=== PATIENT | female | born 1950 | race Caucasian/White ===

== ENCOUNTER → 2020-01-13 17:58 | Outpatient (CLI) | payer MEDICARE, SELFPAY ==
--- NOTE | ~2020-01-13 | MM_ITS ---
EXAMINATION: MM screening [facility] BI w prasad HISTORY: Screening mammogram TECHNIQUE: Craniocaudal and mediolateral oblique 3-D tomosynthesis images were obtained and synthetic 2-D images were generated. CAD analysis was submitted and interpreted. COMPARISON: 04/23/2017 BREAST PARENCHYMAL COMPOSITION: There are scattered areas of fibroglandular density. FINDINGS: Stable mild asymmetry. Minimal benign calcification. There is no evidence of suspicious mas s, calcification, or architectural distortion to suggest malignancy in either breast. There has been no suspicious interval change. IMPRESSION: 1. No mammographic evidence of malignancy. 2. Recommend routine screening mammography in one year. BI-RADS Category 2: Benign finding(s). Reviewed, dictated and finalized at location A. OR NEWS
== END ==
PROVIDERS: PCP Internal Medicine; Visit Provider Nurse Practitioner
DX: Z12.31 Encounter for screening mammogram for malignant neoplasm of breast (principal)
CPT/HCPCS: 77063; 77067

== ENCOUNTER → 2021-05-07 14:04 | Outpatient (CLI) | payer MEDICARE, SELFPAY ==
--- NOTE | ~2021-05-07 | MM_ITS ---
EXAMINATION: MM screening [facility] BI w prasad HISTORY: Screening mammogram TECHNIQUE: Craniocaudal and mediolateral oblique 3-D tomosynthesis images were obtained and synthetic 2-D images were generated. CAD analysis was submitted and interpreted. COMPARISON: 01/13/2020, 04/23/2017, 05/25/2013 BREAST PARENCHYMAL COMPOSITION: There are scattered areas of fibroglandular density. FINDINGS: There is no suspicious mass, calcification, or architectural distortion to suggest malignan cy in either breast. There has been no suspicious interval change. IMPRESSION: 1. No mammographic evidence of malignancy. 2. Recommend routine screening mammography in one year. BI-RADS Category 1: Negative Reviewed, dictated and finalized at location A.
== END ==
PROVIDERS: PCP Internal Medicine; Visit Provider Nurse Practitioner
DX: Z12.31 Encounter for screening mammogram for malignant neoplasm of breast (principal)
CPT/HCPCS: 77063; 77067

== ENCOUNTER 2022-04-02 11:56 | Outpatient (CLI) | payer MEDICARE, SELFPAY ==
[2022-04-02 20:20] LABS: Basophils Absolute Auto 0.1 K/mm3 (0.0-0.1); Basophils Percent Auto 0.7 % (0.2-1.2); Eosinophils Absolute Auto 0.2 K/mm3 (0-0.3); Eosinophils Percent Auto 1.9 % (0-4.4); Hematocrit 38.1 % (37.0-47.0); Hemoglobin 12.2 g/dL (12.0-15.0); Immature Granulocyte Absolute 0.02 K/mm3 (0.00-0.031); Immature Granulocyte Percent A 0.2 % (0-0.5); Lymphocytes Absolute Auto 2.18 K/mm3 (0.9-3.2); Lymphocytes Percent Auto 25.7 % (18.3-44.2); Mean Corpuscular Hemoglobin 28.5 pg (26-34); Mean Platelet Volume 9.6 fl (7.4-10.4); Monocytes Absolute Auto 0.9 K/mm3 (0.1-0.6); Monocytes Percent Auto 10.3 % (2.6-8.5); Neutrophils Absolute Auto 5.2 K/mm3 (1.3-6.7); Neutrophils Percent Auto 61.2 % (45.5-73.1); Platelet Count Result 278 k/mm3 (150-375); Red Blood Count 4.28 M/mm3 (4.2-5.4); Red Cell Distribution Width 12.4 % (11.5-14.5); White Blood Count 8.5 K/mm3 (4.5-10.0)
[2022-04-02 20:27] LABS: Alanine Aminotransferase 18 U/L (6-35); Albumin Level 3.8 g/dL (3.5-5.1); Alkaline Phosphatase 80 U/L (38-126); Anion Gap 5 mmol/L (8-16); Aspartate Amino Transferase 32 U/L (14-36); Bilirubin,Total 0.4 mg/dL (0.2-1.3); Blood Urea Nitrogen 21 mg/dL (7-17); Calcium 8.9 mg/dL (8.4-10.2); Carbon Dioxide 30 mmol/L (22-30); Chloride 104 mmol/L (98-107); Estimated Glomerular Filt Rate 54; Glucose 114 mg/dL (65-110); Potassium 4.2 mmol/L (3.4-5.0); Sodium 139 mmol/L (137-145)
[2022-04-02 20:38] LABS: Vitamin D 25 Hydroxy 45.5 ng/mL
== END 2022-04-02 11:57 | disposition home or self-care (01) ==
LOC: ANHGOSHLAB 11:57
PROVIDERS: PCP Internal Medicine; Visit Provider Nurse Practitioner
DX: Z13.29 Encounter for screening for other suspected endocrine disorder (principal); E03.9 Hypothyroidism, unspecified; E55.9 Vitamin D deficiency, unspecified
CPT/HCPCS: 36415; 80053; 82306; 84443; 85025

== ENCOUNTER 2022-08-01 09:08 | Outpatient (CLI) | payer MEDICARE, SELFPAY ==
[2022-08-01 12:31] LABS: Anion Gap 5 mmol/L (8-16); Blood Urea Nitrogen 20 mg/dL (7-17); Calcium 8.6 mg/dL (8.4-10.2); Carbon Dioxide 31 mmol/L (22-30); Chloride 104 mmol/L (98-107); Cholesterol 164 mg/dL (0-200); Estimated Glomerular Filt Rate > 60; Glucose 104 mg/dL (65-110); HDL Direct 48 mg/dL; Potassium 4.4 mmol/L (3.4-5.0); Sodium 140 mmol/L (137-145); Triglycerides 48 mg/dL (<150)
[2022-08-01 12:42] LABS: LDL Cholesterol Direct 88 mg/dL
== END 2022-08-01 09:09 | disposition home or self-care (01) ==
LOC: ANHGOSHLAB 09:09
PROVIDERS: PCP Internal Medicine; Visit Provider Nurse Practitioner
DX: R94.4 Abnormal results of kidney function studies (principal); Z13.220 Encounter for screening for lipoid disorders
CPT/HCPCS: 36415; 80048; 80061

== ENCOUNTER → 2022-10-14 11:10 | Outpatient (CLI) | payer MEDICARE, SELFPAY ==
--- NOTE | ~2022-10-14 | DEXA_ITS ---
Bone Density Report Name: BERT GAYTAN Age: 72 Sex: Female Ethnicity: White Date of : 1950 Indication: postmenopausal; screening for osteoporosis; parental hip fracture; prior fracture; Referring Provider: Ruby Silva Study: Bone densitometry was performed. Exam Date: October 14, 2022 Accession number: [id number] Bone Density: Region BMD T-score Z-score Classification AP Spine (L1-L4) 1.238 1.7 4.1 Normal Femoral Neck (Left) 0.647 -1.8 0.2 Osteopenia Total Hip (Left) 0.871 -0.6 1.1 Normal Femoral Neck (Right) 0.732 -1.1 1.0 Osteopenia Total Hip (Right) 0.880 -0.5 1.2 Normal Total Hip Mean 0.876 -0.6 1.2 Normal World Health Organization criteria for BMD impression classify patients as: Normal (T-score at or above -1.0), Osteopenia (T-score between -1.0 and -2.5), or Osteoporosis (T-score at or below -2.5). 10-year Fracture Risk(1): Major Osteoporotic Fracture 28% Hip Fracture 13% Reported Risk Factors: [place] (), Neck BMD=0.647, BMI=31.5, previous fracture, parental fracture (1) FRAX(R) Version 3.08. Fracture probability calculated for an untreated patient. Fracture probability may be lower if the patient has received treatment. Previous Exams: Region Exam Age BMD T-score BMD Change BMD Change Date g/cm2 vs Baseline vs Previous AP Spine(L1-L4) 10/14/2022 72 1.238 1.7 -0.031 -0.031 04/23/2017 66 1.269 2.0 Total Hip(Left) 10/14/2022 72 0.871 -0.6 -0.017 -0.017 04/23/2017 66 0.888 -0.4 Total Hip(Right) 10/14/2022 72 0.880 -0.5 -0.025 -0.025 04/23/2017 66 0.906 -0.3 *Denotes significance at 95% confidence level, LSC for AP Spine = 0.022 g/cm2, LSC for Total Hip = 0.027 g/cm2 Clinical Information Provided by Patient: Has had a low trauma fracture Parent has had a hip fracture Has used the following medications: Vitamin D, Calcium, MTV, LEVOTHYROXINE Patient maximum height was 65.0 Menopause Age: 48 Drinks caffeinated beverages Onset of menses at age 11 Number of children 2 Impression: The patient has low bone mass, based on the Left Femoral Neck T-score. The patient has an estimated ten-year risk of hip fracture of 13% and an estimated ten-year risk of major fracture of 28%, based on the WHO FRAX algorithm. The patient has risk factors, including: parental hip fracture, previous fracture. No significant bone loss was observed.
== END ==
PROVIDERS: PCP Nurse Practitioner; Visit Provider Nurse Practitioner
DX: Z78.0 Asymptomatic menopausal state (principal); M85.852 Other specified disorders of bone density and structure, left thigh; M85.851 Other specified disorders of bone density and structure, right thigh
CPT/HCPCS: 77080

== ENCOUNTER → 2022-10-23 11:02 | Outpatient (CLI) | payer MEDICARE, SELFPAY ==
--- NOTE | ~2022-10-23 | MM_ITS ---
EXAMINATION: MM screening [facility] BI w prasad HISTORY: Screening mammogram TECHNIQUE: Craniocaudal and mediolateral oblique 3-D tomosynthesis images were obtained and synthetic 2-D images were generated. CAD analysis was submitted and interpreted. COMPARISON: 05/07/2021, 01/13/2020 BREAST PARENCHYMAL COMPOSITION:There are scattered areas of fibroglandular density. FINDINGS: Stable small nodular opacities are present bilaterally. No suspicious mass, calcification, or architectural distortion are identified in either breast to suggest malignancy. There has been no suspicious interval change. IMPRESSION: No mammographic evidence of malignancy. Recommend routine screening mammography in one year. BI-RADS Category 2: Benign finding(s). Reviewed, dictated and finalized at location .
== END ==
PROVIDERS: PCP Internal Medicine; Visit Provider Nurse Practitioner
DX: Z12.31 Encounter for screening mammogram for malignant neoplasm of breast (principal)
CPT/HCPCS: 77063; 77067

== ENCOUNTER 2023-01-08 13:55 | Outpatient (CLI) | payer MEDICARE, SELFPAY ==
[2023-01-08 19:19] LABS: Anion Gap 11 mmol/L (8-16); Blood Urea Nitrogen 17 mg/dL (7-17); Carbon Dioxide 27 mmol/L (22-30); Chloride 103 mmol/L (98-107); Estimated Glomerular Filt Rate 54; Glucose 99 mg/dL (65-110); Potassium 3.9 mmol/L (3.4-5.0); Sodium 141 mmol/L (137-145)
== END 2023-01-08 13:56 | disposition home or self-care (01) ==
LOC: ANHGOSHLAB 13:58
PROVIDERS: PCP Internal Medicine; Visit Provider Nurse Practitioner
DX: E03.9 Hypothyroidism, unspecified (principal); R94.4 Abnormal results of kidney function studies
CPT/HCPCS: 36415; 80048; 84443

== ENCOUNTER 2023-06-10 10:15 | Outpatient (CLI) | payer MEDICARE, SELFPAY ==
[2023-06-10 12:14] LABS: Basophils Absolute Auto 0.1 K/mm3 (0.0-0.1); Basophils Percent Auto 0.8 % (0.2-1.2); Eosinophils Absolute Auto 0.3 K/mm3 (0-0.3); Eosinophils Percent Auto 3.5 % (0-4.4); Hematocrit 40.6 % (37.0-47.0); Hemoglobin 12.7 g/dL (12.0-15.0); Immature Granulocyte Absolute 0.02 K/mm3 (0.00-0.031); Immature Granulocyte Percent A 0.3 % (0-0.5); Lymphocytes Absolute Auto 2.33 K/mm3 (0.9-3.2); Lymphocytes Percent Auto 32.5 % (18.3-44.2); Mean Corpuscular HGB Conc 31.3 g/dl (32-36); Mean Corpuscular Hemoglobin 28.6 pg (26-34); Mean Corpuscular Volume 91.4 fl (80-100); Mean Platelet Volume 9.6 fl (7.4-10.4); Monocytes Absolute Auto 0.9 K/mm3 (0.1-0.6); Neutrophils Absolute Auto 3.6 K/mm3 (1.3-6.7); Neutrophils Percent Auto 49.9 % (45.5-73.1); Platelet Count Result 287 k/mm3 (150-375); Red Blood Count 4.44 M/mm3 (4.2-5.4); Red Cell Distribution Width 13.2 % (11.5-14.5); White Blood Count 7.2 K/mm3 (4.5-10.0)
[2023-06-10 12:21] LABS: Alanine Aminotransferase 15 U/L (6-35); Albumin Level 4.3 g/dL (3.5-5.1); Alkaline Phosphatase 72 U/L (38-126); Anion Gap 7 mmol/L (4-12); Aspartate Amino Transferase 39 U/L (14-36); Bilirubin,Total 0.8 mg/dL (0.2-1.3); Blood Urea Nitrogen 19 mg/dL (7-17); Calcium 9.2 mg/dL (8.4-10.2); Carbon Dioxide 27 mmol/L (22-30); Chloride 107 mmol/L (98-107); Cholesterol 174 mg/dL (0-200); Estimated Glomerular Filt Rate > 60; Glucose 121 mg/dL (65-110); HDL Direct 55 mg/dL; Potassium 4.3 mmol/L (3.4-5.0); Sodium 141 mmol/L (137-145); Triglycerides 61 mg/dL (<150)
[2023-06-10 12:36] LABS: LDL Cholesterol Direct 92 mg/dL
[2023-06-10 12:43] LABS: Vitamin D 25 Hydroxy 23.3 ng/mL
[2023-06-10 16:00] LABS: Hemoglobin A1C 5.6 % (<5.7)
== END 2023-06-10 10:16 | disposition home or self-care (01) ==
LOC: ANHGOSHLAB 10:18
PROVIDERS: PCP Nurse Practitioner; Visit Provider Nurse Practitioner
DX: E03.9 Hypothyroidism, unspecified (principal); E55.9 Vitamin D deficiency, unspecified; R94.4 Abnormal results of kidney function studies; Z13.220 Encounter for screening for lipoid disorders; Z13.29 Encounter for screening for other suspected endocrine disorder; R73.9 Hyperglycemia, unspecified
CPT/HCPCS: 36415; 80053; 80061; 82306; 83036; 84443; 85025

== ENCOUNTER 2023-08-18 10:52 | Outpatient (CLI) | payer MEDICARE, SELFPAY ==
[2023-08-18 14:07] LABS: Free T4 Free Thyroxine 1.86 ng/mL (0.78-2.19)
== END 2023-08-18 10:53 | disposition home or self-care (01) ==
LOC: ANHGOSHLAB 10:53
PROVIDERS: PCP Nurse Practitioner; Visit Provider Nurse Practitioner
DX: E03.9 Hypothyroidism, unspecified (principal)
CPT/HCPCS: 36415; 84439; 84443

== ENCOUNTER 2023-10-05 09:19 | Emergency (ER) | payer MEDICARE, SELFPAY ==
--- NOTE | 2023-10-05 09:22 | ED.SKABFB ---
HPI - Skin/Abscess/Foreign Bdy General Chief complaint: Skin/Abscess/Foreign Body Stated complaint: Bug Bites Time Seen by Provider: 10/05/23 09:21 Source: patient Mode of arrival: ambulatory Limitations: no limitations History of Present Illness HPI narrative: Pati is a 72-year-old female patient presenting to the clinic today with complaints of possible bug bites to her legs and on her back. She reports she went hiking over the weekend and then sat outside on her deck. States the bug bites are extremely it Related Data Home Medications Medication Instructions Recorded Confirmed calcium carbonate 500 mg-vitamin 1 tablet PO DAILY 11/15/19 10/05/23 D3 3.125 mcg (125 unit) tablet cholecalciferol (vitamin D3) 50 50 mcg PO DAILY 11/15/19 10/05/23 mcg (2,000 unit) capsule multivitamin 1 tablet PO DAILY 11/15/19 10/05/23 vitamins A,C,X-wyzc-ehdaoh 2,148 2 tablet PO BID 11/15/19 10/05/23 mcg-113 mg-45 mg-17.4 mg tablet (PreserVision AREDS) sodium chloride 5 % eye drops 1 drp EACH EYE BID 04/02/22 10/05/23 azelastine 0.05 % eye drops 1 drp EACH EYE DAILY 06/13/22 10/05/23 estradiol 0.01% (0.1 mg/gram) 1 g vaginal 2XW 06/17/23 10/05/23 vaginal cream Allergies Allergy/AdvReac Type Severity Reaction Status Date / Time Sulfa (Sulfonamide AdvReac Rash Verified 10/05/23 09:28 Antibiotics) [facility] Past Medical History Medical History Hypothyroidism Vitamin deficiency Surgical History Surgical History History of cataract surgery right eye Family History Family History Mother Family history of thyroid disease Hypertension Grandparent Family history of malignant neoplasm of breast in first degree relative Father Myocardial infarction Social History Social History Smoking status: Never smoker Alcohol intake: current Alcohol use details: rarely Do You Feel Safe in your Home?: Yes Lack of Transportation: No Lack of Food: Never True Current Housing: I Have Housing Concerned About Future Housing: No Difficulty Paying Gas/Electric Bills: No Difficulty Paying for Meds: No Currently Unemployed: No Education: Bachelor's Degree Difficulty w/ Childcare or Family Care: No Comments At the time of my signature, I reviewed and agree with the nursing past medical, surgical, social, and family history. There is no relevant family history pertinent to the patient complaint. Exam Narrative: General: Well-developed, well nourished, in no apparent distress Head: Normocephalic, atraumatic. Cardio: Regular rate and rhythm, s1 and s2 normal, no murmur appreciated. Resp: Clear to auscultation bilaterally, no rhonchi, rales, wheezing or rubs. Integumentary: [place], warm, and dry, red raised papular insect bites to bilateral lower legs, inner thighs, and on the upper and mid back. No pain to palpation, no erythema Course Course Emergency Course: Portions of this record may have been created with voice recognition software. Level of Care: Express Care Visit Vital Signs Vital signs: Vital Signs Temperature 36.4 C L 10/05/23 09:32 Pulse Rate 63 10/05/23 09:32 Respiratory Rate 16 10/05/23 09:32 Blood Pressure 133/60 10/05/23 09:32 Pulse Oximetry 99 10/05/23 09:32 Temperature 36.4 C L 10/05/23 09:32 Pulse Rate 63 10/05/23 09:32 Respiratory Rate 16 10/05/23 09:32 Blood Pressure 133/60 10/05/23 09:32 Pulse Oximetry 99 10/05/23 09:32 Vital signs reviewed MDM - Skin/Abscess/Foreign Bdy MDM Narrative Medical decision making narrative: At the time of visit patient is resting comfortably on the exam table. Patient appears to be nontoxic. Plan: I suspect patient has insect bites under causing pruritus. Prescri
[2023-10-05 09:32] VITALS: BP 133/60; PULSE 63; RESP 16; TEMP 36.4; O2SAT 99
== END 2023-10-05 09:40 | disposition home or self-care (01) ==
PROVIDERS: Emergency Provider Nurse Practitioner Family; PCP Internal Medicine
DX: S80.862A Insect bite (nonvenomous), left lower leg, initial encounter (principal); S80.861A Insect bite (nonvenomous), right lower leg, initial encounter; S20.469A Insect bite (nonvenomous) of unspecified back wall of thorax, initial encounter; W57.XXXA Bitten or stung by nonvenomous insect and other nonvenomous arthropods, initial encounter; E03.9 Hypothyroidism, unspecified
CPT/HCPCS: 99213; G0463

== ENCOUNTER 2024-06-14 10:51 | Outpatient (CLI) | payer MEDICARE, SELFPAY ==
--- OUTSIDE RECORDS SUMMARY | 2024-06-14 12:33 | XMS_ITS | Referral Summary ---
Author Organization [facility] Address [address] [place] [id number] Care Team Providers Care Inorganic Chemistry Professor Name Role Phone Esteban Rondon DO Primary Care Provider [phone]- [phone] Encounters Date Type Department Care Team Description 06/08/2024 9:40 AM CDT Office Visit [facility] Obstetrics and Gynecology [address] [place] [address] 7th Floor [address] [place] [address] Brenna Berkowitz NP Uterovaginal prolapse (Primary Dx); Mixed stress and urge urinary incontinence; Vaginal atrophy; Pessary maintenance from Last 3 Months Allergies Active Allergy Reactions Criticality Noted Date Comments Sulfa (Sulfonamide Antibiotics) Rash Medium 09/23 Medications azelastine (OPTIVAR) 0.05 % ophthalmic solution INSTILL 1 DROP INTO BOTH EYES EVERY DAY 07/18/19 23 Active MULTIVITAMIN ORAL Take by mouth Active cholecalcifero l (Vitamin D3) 1,000 unit capsule Take 2 capsules (2,000 Units total) by mouth daily Active CALCIUM ORAL Take by mouth Act sammie nystatin powderIndicati ons:Candidal skin infection Apply to the affected areas 2 to 3 times daily until healing is complete. 30 g 02/13/20 23 Active levothyroxine (SYNTHROID) 75 mcg tablet TAKE ONE TABLET (75MCG) BY MOUTH ONCE DAILY 06/17/19 24 Active vit C/E/Zn/coppr/l utein/zeaxan (PRESERVISION AREDS-2 ORAL) Take by mouth Ac tive UNABLE TO FIND Med Name: SODIUM CHLORIDE HYPERTONICITY 5% SOLUTION Active nystatin-triam cinolone ointmentIndica tions:cutaneou s candidiasis Apply topically 2 (two) times a day For 2-3 weeks. 30 g 03/08/19 25 Active estradioL (ESTRACE) 0.01 % (0.1 mg/gram) vaginal creamIndicatio ns:Vaginal atrophy INSERT ONE GRAM VAGINALLY 2 TIMES PER WEEK (SUCH THURSDAY/THURSDAY) 42.5 g 3 06/11/19 25 Active estradioL (Estrace) 0.01 % (0.1 mg/gram) vaginal creamIndicatio ns:Vaginal atrophy Insert one gram vaginally 2 times per week (such as Thursday/) 42.5 g 3 04/24/19 24 2024 Discontinued Active Problems Problem Noted Date Diagnosed Date Vaginal atrophy 11/13/2022 Assessment & Plan (11/13/2022 11:01 AM CDT): -continue twice weekly VET Uterovaginal prolapse 2022 Assessment & Plan (11/13/2022 10:59 AM CDT): -she is happy with support of #4 Ross -instructed on self management -return in 3 months for pessary check Assessment & Plan (2022 8:01 PM CDT): Management options were discussed for POP-Q stage 3 uterovaginal prolapse including expectant management, conservative management (a pessary), and surgical management (obliterative vs reconstructive). She desires to have conservative management with a pessary while she considers possible surgical management. She is not sexually active. Urge incontinence of urine 2022 Assessment & Plan (11/13/2022 11:00 AM CDT): -improved with use of pessary -discussed trial of PFPT to see if provides additional improvement, patient amenable to this and order provided. Assessment & Plan (2022 8:03 PM CDT): A urine culture is being sent today to rule out a UTI as a possible cause of her symptoms. -discussed that managing her prolapse may improve urinary symptoms, will reassess after pessary fitting Resolved Problems Problem Noted Date Diagnosed Date Resolved Date Incomplete bladder emptying 2022 11/13/2022 Assessment & Plan (11/13/2022 11:01 AM CDT): -resolved with use of pessary per normal PVR at today's visit Assessment & Plan (2022 8:03 PM CDT): Her incomplete bladder emptying is likely due to her prolapse and should improve with pessary management. Plan to recheck PVR at followup. Social History Tobacco Use Types Packs/Day Years Used Date Smoking Tobacco: Never Smokeless Tobacco: Never Tobacco Cessation:Counseling Given: Not Answered AUDIT-C Answer Date Recorded Q1: How often do you have a drink containing alc ohol? 2-4 times a month 2022 Q2: How many drinks containi ng alcohol do you have on a typical day when you are drinking? 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 Sexual Orientation Not on file Last Filed Vital Signs Vital Sign Reading Time Taken Comments Blood Pressure 136/82 06/08/2024 9:48 AM CDT Pulse - - Temperature - - Respiratory Rate - - Oxygen Saturation - - Inhaled Oxygen Concentration - - Weight 73.5 kg (162 lb) 06/08/2024 9:48 AM CDT Height 164.5 cm (5' 4.76 ) 06/08/2024 9:48 AM CD T Body Mass Index 27.16 06/08/2024 9:48 AM CDT Plan of Treatment Not on file Insurance [employer] MEDICARE [facility] Address: [facility] [id number] [place] [address] [employer] MEDICARE [facility] Address: [facility] [id number] [place] [address] Care Teams Inorganic Chemistry Professor Relationship Specialty Start Date End Date Esteban Rondon DO PCP - General Internal Medicine 08/19/22
--- OUTSIDE RECORDS SUMMARY | 2024-06-14 12:33 | XMS_ITS | Clinical Summary ---
Author Organization [facility] Address [address] [place] [address] Care Team Providers Care Slitter Scorer Name Role Phone Esteban Rondon DO Primary Care Provider [phone]- [phone] Allergies Active Allergy Reactions Criticality Noted Date [...] management. Plan to recheck PVR at followup. Encounters Date Type Department Care Team Description 06/08/2024 9:40 AM CDT Office Visit [facility] Obstetrics and Gynecology [address] [facility] 7th Floor [address] [place] [address] Brenna Berkowitz, DERICK Uterovaginal prolapse (Primary Dx); Mixed stress and urge urinary incontinence; Vaginal atrophy; Pessary maintenance from Last 3 Months Surgical History Surgery Date Site/Laterality Comments CATARACT EXTRACTION EXTRACAP SULAR W/ INTRAOCULAR LENS IMPLANTATION 02/23/2018 - 02/22/2019 CATARACT EXTRACTION EXTRACAP SULAR W/ INTRAOCULAR LENS IMPLANTATION 02/23/2022 - 02/22/2023 TUBAL LIGATION Medical History Medical History Date Comments Hypothyroidism Family History Medical History Relation Name Comments Hearing loss Father Enon Heart disease Father Dorian Hypertension Father Dorian Breast cancer Maternal Grandmother Jennifer Diabetes Maternal Grandmother Jennifer Relation Name Status Comments Father Dorian Maternal Grandmother Jennifer Social History Tobacco Use Types Packs/Day Years [...] CDT Gender Identity Female 02/10/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 Sexual Orientation Not on file Obstetrics History Para Term AB IAB SAB Ectopic Multiple Livin g Live Births 1 1 1 1 2 2 Date Outcome GA Total Labor Labor/2nd/3rd Weight Sex Type Anes PTL Sanjuanita A1 A5 Name Clin 1974 Term Vaginal Living 1973 Term Vag-Spo nt Living Last Filed Vital Signs Vital Sign Reading [...] 06/08/2024 9:48 AM CDT Plan of Treatment Health Maintenance Due Date Last Done Comments Colon Cancer Screening-Colonoscopy 1950 Depression Screening 1950 Fall Risk Assessment 1950 Hepatitis C Screening 1950 Osteoporosis Screening-Bone Density Scan 1950 Hepatitis B Screening 1966 Pneumococcal vaccine 65+ (1 of 1 - PCV) 1998 Well Visit 65+ 2013 Covid-19 Vaccine (7 2023-2 5 season) 2023 08/13/2022, 11/15/2021, 06/07/2021, Additional history exists Influenza Vaccine (Season Ended) 2024 11/15/2021, 11/13/2020, 11/25/2019, Additional history exists DTaP/Tdap/Td Vaccine (2 - Td or Tdap) 03/01/2031 03/01/2021 Zoster Vaccine Completed 03/16/2020, 11/25/2019 Insurance [facility] MEDICARE AETNA MEDICARE Care Teams Slitter Scorer Relationship Specialty Start Date End Date Esteban Rondon DO PCP - General Internal Medicine 08/19/22
[2024-06-14 14:35] LABS: Alanine Aminotransferase 15 U/L (6-35); Alkaline Phosphatase 62 U/L (38-126); Anion Gap 6 mmol/L (4-12); Aspartate Amino Transferase 32 U/L (14-36); Bilirubin,Total 0.6 mg/dL (0.2-1.3); Blood Urea Nitrogen 22 mg/dL (7-17); Calcium 8.6 mg/dL (8.4-10.2); Carbon Dioxide 30 mmol/L (22-30); Chloride 100 mmol/L (98-107); Cholesterol 169 mg/dL (0-200); Estimated Glomerular Filt Rate > 60; Glucose 85 mg/dL (65-110); HDL Direct 55 mg/dL; Potassium 4.7 mmol/L (3.4-5.0); Sodium 136 mmol/L (137-145); Triglycerides 53 mg/dL (<150)
[2024-06-14 14:36] LABS: Basophils Absolute Auto 0.1 K/mm3 (0.0-0.1); Basophils Percent Auto 0.8 % (0.2-1.2); Eosinophils Absolute Auto 0.2 K/mm3 (0-0.3); Eosinophils Percent Auto 2.9 % (0-4.4); Hematocrit 36.5 % (37.0-47.0); Hemoglobin 11.6 g/dL (12.0-15.0); Immature Granulocyte Absolute 0.02 K/mm3 (0.00-0.031); Immature Granulocyte Percent A 0.3 % (0-0.5); Lymphocytes Absolute Auto 1.99 K/mm3 (0.9-3.2); Lymphocytes Percent Auto 31.6 % (18.3-44.2); Mean Corpuscular HGB Conc 31.8 g/dl (32-36); Mean Corpuscular Hemoglobin 29.2 pg (26-34); Mean Corpuscular Volume 91.9 fl (80-100); Mean Platelet Volume 9.7 fl (7.4-10.4); Monocytes Absolute Auto 0.8 K/mm3 (0.1-0.6); Monocytes Percent Auto 12.9 % (2.6-8.5); Neutrophils Absolute Auto 3.2 K/mm3 (1.3-6.7); Neutrophils Percent Auto 51.5 % (45.5-73.1); Platelet Count Result 245 k/mm3 (150-375); Red Blood Count 3.97 M/mm3 (4.2-5.4); Red Cell Distribution Width 12.8 % (11.5-14.5); White Blood Count 6.3 K/mm3 (4.5-10.0)
[2024-06-14 14:45] LABS: LDL Cholesterol Direct 78 mg/dL
[2024-06-14 14:52] LABS: Vitamin D 25 Hydroxy 61.1 ng/mL
== END 2024-06-14 10:52 | disposition home or self-care (01) ==
LOC: ANHGOSHLAB 10:52
PROVIDERS: PCP Nurse Practitioner; Visit Provider Nurse Practitioner
DX: R94.4 Abnormal results of kidney function studies (principal); E55.9 Vitamin D deficiency, unspecified; Z13.29 Encounter for screening for other suspected endocrine disorder; E56.9 Vitamin deficiency, unspecified; E03.9 Hypothyroidism, unspecified
CPT/HCPCS: 36415; 80053; 80061; 82306; 85025

== ENCOUNTER 2024-08-03 14:55 | Outpatient (CLI) | payer MEDICARE, SELFPAY | END 2024-08-03 14:56 | disposition home or self-care (01) | PROVIDERS: PCP Nurse Practitioner | DX: N39.41 Urge incontinence (principal) | CPT/HCPCS: 87086 ==

== ENCOUNTER 2024-09-15 13:25 | Outpatient (CLI) | payer MEDICARE, SELFPAY ==
--- OUTSIDE RECORDS SUMMARY | 2024-09-15 13:36 | XMS_ITS | Encounter Summary ---
Author Organization [facility] Address [address] [place] [address] Phone Care Team Providers Care Tool And Equipment Rental Clerk Name Role Phone Esteban Rondon DO Primary Care Provider +1- [phone] Reason for Visit * Reason Onset Date Comments CBC w/diff 09/12/2024 Encounter Details Date Type Department Care Team (Late st Contact Info) Description 09/12/2024 Telephone [facility] Obstetrics and Gynecology [address] [facility] 7th [address] [place] [address] Yvonne Wells, RN CBC w/diff Social History Tobacco Use Types Packs/Day Years Used Date Smoking Tobacco: Never Passive Smoke Exposure: Never Smokeless Tobacco: Never AUDIT-C Answer Date Recorded Q1: How often do you have a drink containing alc ohol? Monthly or less 09/12/2024 Q2: How many drinks containi ng alcohol do you have on a typical day when you are drinking? 1 or 2 09/12/2024 Q3: How often do you have si x or more drinks on one occasion? Never 09/12/2024 Personal Safety Answer Date Recorded Have you ever been in or are you currently in a harmful physical or emotional relationship or is someone making you feel afraid or unsafe? Denies 09/12/2024 Comments No Sex and Gender Information Value Date Recorded Sex Assigned at Not on file Legal Sex Female 12:30 PM CDT Gender Identity Female 02/10/2023 12:06 PM PHARMACEUTICAL ASSISTANT Sexual Orientation Not on file documented as of this encounter Functional Status * Audit-C Score Answer Date of Assessment Author 1 09/12/2024 10:57 AM CDT Nas Lamas RN * Question Answer Date of Assessment Author Q1: How often do you have a drink containing alcohol? Monthly or less 09/12/2024 10:57 AM DARRYLT Dylan Lamas, ANA PAULA Q2: How many drinks containing alcohol do you have on a typical day when you are drinking? 1 or 2 09/12/2024 10:57 AM DARRYLT Dylan Lamas RN Q3: How often do you have six or more drinks on one occasion? Never 09/12/2024 10:57 AM CDT Dylan Lamas RN documented as of this encounter Miscellaneous Notes * Telephone Encounter - Yvonne Wells RN - 09/15/2024 12:16 PM CDT Call received and order for CBC w/Diff sent to [facility]. * Telephone Encounter - Yvonne Wells RN - 09/15/2024 9:47 AM CDT LMTC * Telephone Encounter - Yvonne Wells RN - 09/12/2024 3:55 PM CDT Patient at [facility] today for surgery scheduled 10/11/24. [facility] lab services contacted office to report anerror in collecting the CBC w/diff. The T&S, BMP, eGFR and urine have all been completed. Did you want her to repeat the CBC w/diff? documented in this encounter Plan of Treatment Upcoming Encounters Date Type Department Care Team (Latest Contact Info) Description 10/11/2024 7:30 AM CDT Hospital Encounter [facility] [address] [place] [address] Camden Galvan MD [address] [place] [address] 10/11/2024 7:30 AM CDT Anesthesia Event [facility] [address] [place] [address] Mery Del Cid SALES OPERATIONS COORDINATOR [address] [facility] [id number] [place], [place] [id number] 10/11/2024 7:30 AM CDT - 10/11/2024 11:35 AM CDT Surgery [facility] [address] [place] [address] Camden Galvan MD [address] [place] [address] LAPAROSCOPIC UTEROSACRAL COLPOSUSPENSION Scheduled Procedures Name Priority Associated Diagnoses Date/Ti me LAPAROSCOPIC UTEROSACRAL COLPOSUSPENSION Uterovaginal prolapse Urge incontinence of urine 10/11/2024 7:30 AM CDT REPAIR CYSTOCELE ANTERIOR COLPORRHAPHY Uterovaginal prolapse Urge incontinence of urine 10/11/2024 7:30 AM CDT CYSTOSCOPY Uterovaginal prolapse Urge incontinence of urine 10/11/2024 7:30 AM CDT LAPAROSCOPIC TOTAL HYSTERECTOMY Uterovaginal prolapse Urge incontinence of urine 10/11/2024 7:30 AM CDT LAPAROSCOPIC SALPINGO-OOPHORECTOMY Uterovaginal prolapse Urge incontinence of urine 10/11/2024 7:30 AM CDT INJECTION BULKAMID Uterovaginal prolapse Urge incontinence of urine 10/11/2024 7:30 AM CDT documented as of this encounter Visit Diagnoses Not on filedocumented in this encounter Care Teams Tool And Equipment Rental Clerk Relationship Specialty Start Date End Date Esteban Rondon DO PCP - General Internal Medicine 08/19/22 documented as of this encounter
--- OUTSIDE RECORDS SUMMARY | 2024-09-15 13:36 | XMS_ITS | Encounter Summary ---
Author Organization [facility] Address [address] [place] [address] Phone Care Team Providers Care Loan Broker Name Role Phone Esteban Rondon DO Primary Care Provider +1- [phone] Encounter Details Date Type Department Care Team (Late st Contact Info) Description 09/15/2024 Results Follow-Up [facility] Obstetrics and Gynecology [address] 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 [facility] lab contacted our office and was unable to process CBC w/diff. Per Dr. Galvan this test needed to be repeated. Patient will go to [facility] [phone] * Telephone Encounter - Yvonne Wells RN - 09/15/2024 11:31 AM CDT ----- Message from Camden Galvan MD sent at 09/15/2024 11:09 AM CDT ----- Please notify pt of normal US. ----- Message ----- From: Interface, Radiology Results In Sent: 09/12/2024 2:03 PM CDT To: Camden Galvan MD documented in this encounter Plan of Treatment Upcoming Encounters Date Type Department Care Team (Latest Contact Info) Description 10/11/2024 7:30 AM CDT Hospital Encounter [facility] [address] [place] [phone] Camden Galvan MD [address] [place] [address] 10/11/2024 7:30 AM CDT Anesthesia Event [facility] Operating [address] [place] [address] Mery Del Cid, DERICK [address] [facility] [id number] [place] [address] 10/11/2024 7:30 AM CDT - 10/11/2024 11:[address] [facility] [address] [place] [address] Camden Galvan MD [address] [place] [address] LAPAROSCOPIC UTEROSACRAL COLPOSUSPENSION Scheduled Orders Name Type Priority Associated Diagnoses Orde r Schedule CBC with auto differential Lab Routine Uterovaginal prolapse Preop testing Expected: 09/18/2024, Expires: 09/15/2025 Scheduled Procedures Name Priority Associated Diagnoses Date/Ti [...] documented as of this encounter Visit Diagnoses Diagnosis Uterovaginal prolapse Uterovaginal prolapse, unspecified Urge incontinence of urine Urge incontinence Uterovaginal prolapse- Primary Uterovaginal prolapse, unspecified Preop testing Unspecified pre-operative examination Uterovaginal prolapse Uterovaginal prolapse, unspecified Urge incontinence of urine Urge incontinence documented in this encounter Care Teams Loan Broker Relationship Specialty Start Date End Date Esteban Rondon DO PCP - General Internal Medicine 08/19/22 documented as of this encounter
--- OUTSIDE RECORDS SUMMARY | 2024-09-15 13:36 | XMS_ITS | Referral Summary ---
Author Organization [facility] Address [address] [place] [phone] Care Team Providers Care Ground Crewman Aircraft Support Name Role Phone Esteban Rnodon DO Primary Care Provider [phone]- [phone] Encounters Date Type Department Care Team Description 09/15/2024 Results Follow-Up [facility] Obstetrics and Gynecology [address] [place] [address] 7th Floor [address] [place] [phone] Camden Galvan MD US Pelvis Complete 09/12/2024 Telephone [facility] Obstetrics and Gynecology [address] [place] [address] Floor [address] [place] [phone] Yvonne Wells RN CBC w/diff 09/12/2024 1:18 PM CDT - 09/12/2024 11:59 PM CDT Hospital Encounter [facility] Outpatient [facility] - Ultrasound [address] [place] [address], 7th Floor, [address] [facility] [place] [address] Uterovaginal prolapse Discharge Disposition: Discharge to home or self care 09/12/2024 10:30 AM CDT Pre-Admission Testing [facility] [address] [place] [phone] Preoperative testing (Primary Dx); Urge incontinence of urine; Uterovaginal prolapse 09/12/2024 9:40 AM CDT Office Visit [facility] Obstetrics and Gynecology [address] [place] [address] Floor [address] [place] [phone] Camden Galvan MD Uterovaginal prolapse (Primary Dx); Urge incontinence of urine; Urinary stress incontinence, male; Urethral sphincter deficiency, intrinsic (ISD) 09/07/2024 Telephone [facility] Obstetrics and Gynecology [address] [place] [address] Floor [address] [place] [phone] Jina Brown 09/05/2024 Orders Only [facility] Obstetrics and Gynecology [address] [facility] Medical Office Building [address] [place] [phone] Saida Hardwick RN Uterovaginal prolapse (Primary Dx) 08/16/2024 2:00 PM CDT Office Visit [facility] Obstetrics and Gynecology [address] [place] [address] [place] [phone] Urge incontinence of urine (Primary Dx) 08/05/2024 Telephone [facility] Obstetrics and Gynecology [address] [place] [address] Floor [address] [place] [phone] Yvonne Wells RN UACX result 08/02/2024 Orders Only [facility] Obstetrics and Gynecology [address] [place] [address] [place] [phone] Yvonne Wells, RN Urge incontinence of urine (Primary Dx) 07/08/2024 11:00 AM CDT Office Visit [facility] Obstetrics and Gynecology [address] [place] [address] [place] [phone] Camden Galvan MD Uterovaginal prolapse (Primary Dx); Urge incontinence of urine 06/30/2024 11:00 AM CDT Procedure visit [facility] Obstetrics and Gynecology [address] [place] [address] [place] [phone] Pessary maintenance (Primary Dx) from Last 3 Months Allergies Active Allergy Reactions Criticality Noted Date Comments Sulfa (Sulfonamide Antibiotics) Rash Medium 09/23 Medications azelastine (OPTIVAR) 0.05 % ophthalmic solutionIndicat ions:Allergic Conjunctivitis, dry eye Administer 1 drop into both eyes every morning 07/18/19 23 Active MULTIVITAMIN ORALIndications :supplement Take 1 tablet by mouth every morning Active cholecalciferol (Vitamin D3) 1,000 unit capsuleIndicati ons:Vitamin D Deficiency Take 2 capsules (2,000 Units total) by mouth every morning Active CALCIUM ORALIndications :supplement Take 1 tablet by mouth 2 (two) times a day With Vitamin D3 Active levothyroxine (SYNTHROID) 75 mcg tabletIndicatio ns:hypothyroidi sm Take 1 tablet (75 mcg total) by mouth wireless technician before breakfast 06/17/19 24 Active vit C/E/Zn/coppr/mery tein/zeaxan (PRESERVISION AREDS-2 ORAL)Indication s:supplement Take 1 tablet by mouth 2 (two) times a day Active estradioL (ESTRACE) 0.01 % (0.1 mg/gram) vaginal creamIndication s:Vaginal atrophy INSERT ONE GRAM VAGINALLY 2 TIMES PER WEEK (SUCH THURSDAY/THURSDAY) 42.5 g 3 06/11/19 25 Active Additional Information Patient taking differently: 2 g vaginal 2 times weekly, Insert one gram vaginally 2 times per week (such as Thursday/),Indications: Atrophy of Vulva, Informant: Self, Reported on 09/12/2024 UNABLE TO FINDIndications :dry eye Administer 1 each into both eyes 2 (two) times a day Med Name: SODIUM CHLORIDE HYPERTONICITY 5% eye drops Active nystatin powderIndicatio ns:Candidal skin infection Apply to the affected areas 2 to 3 times daily until healing is complete. 30 g 02/13/20 23 025 Discontin ued(Thera py completed ) UNABLE TO FIND Med Name: SODIUM CHLORIDE HYPERTONICITY 5% SOLUTION 025 Discontin ued(Mindy arrington order) nystatin-triamc inolone ointmentIndicat ions:cutaneous candidiasis Apply topically 2 (two) times a day For 2-3 weeks. 30 g 03/08/19 25 025 Discontin ued(Samanta py completed ) Hospital, Clinic, or Other Facility Administered Medication Ordered Dose Route Frequency Start Date End Date Status nitrofurantoin (MACRODANTIN) capsule 100 mgIndications:Prophylax is, Medical 100 mg oral 2 times daily 08/16/2024 08/17/2024 Ended Active Problems Problem Noted Date Diagnosed Date Urinary stress incontinence, male 09/12/2024 Urethral sphincter deficiency, intrinsic (ISD) 0 09/12/2024 Vaginal atrophy 11/13/2022 Assessment & Plan (11/13/2022 [...] Passive Smoke Exposure: Never Smokeless Tobacco: Never Tobacco Cessation:Counseling Given: [...] CDT Gender Identity Female 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 Sexual Orientation Not on file Last Filed Vital Signs Vital Sign Reading Time Taken Comments Blood Pressure 127/74 09/12/2024 10:46 AM CDT Pulse 65 09/12/2024 10:45 AM CDT Temperature - - Respiratory Rate 18 09/12/2024 10:45 AM CDT Oxygen Saturation 98% 09/12/2024 10:45 AM CDT Inhaled Oxygen Concentration - - Weight 72.6 kg (160 lb 0.9 oz) 09/12/2024 10:45 AM CDT Height 165.1 cm (5' 5) 09/12/2024 10:45 AM CDT Body Mass Index 26.63 09/12/2024 10:45 AM CDT Plan of Treatment Upcoming Encounters Date Type Department Care Team (Latest Contact Info) Description 10/11/2024 7:30 AM CDT Hospital Encounter [facility] Operating Room [address] [place] [phone] Camden Galvan MD [address] [place] [address] 10/11/2024 7:30 AM CDT Anesthesia Event [facility] Operating Room [address] [place] [address] Mery Del Cid NP [address] [facility] [phone] [place] [address] 10/11/2024 7:30 AM CDT - 10/11/2024 11:35 AM CDT Surgery [facility] Operating Room [address] [place] [address] Camden Galvan MD [address] [place], [place] [id number] LAPAROSCOPIC UTEROSACRAL COLPOSUSPENSION Scheduled Procedures Name Priority [...] incontinence of urine 10/11/2024 7:30 AM CDT Procedures Procedure Name Priority Date/Time Associated Diagnosis Comments US PELVIS COMPLETE Schedule Routine, Read Routine (OP Routine) 09/12/2024 1:18 PM CDT Uterovaginal prolapse EGFR Routine 09/12/2024 11:24 AM CDT Preoperative testing BASIC METABOLIC PANEL Routine 09/12/2024 11:24 AM CDT Preoperative testing TYPE AND SCREEN 14 DAY Routine 09/12/2024 11:24 AM CDT Uterovaginal prolapse Urge incontinence of urine URINE CULTURE Routine 09/12/2024 11:24 AM CDT Urge incontinence of urine URODYNAMICS 08/16/2024 2:45 PM CDT POCT URINALYSIS DIPSTICK Routine 08/16/2024 2:41 PM CDT Urge incontinence of urine from Last 3 Months Results * US Pelvis Complete (09/12/2024 1:18 PM CDT) Cul de Sac No free fluid visualized VIEWPOINT Anatomical Region Laterality Modality Pelvis N/A Ultrasound 09/12/2024 1:22 PM CDT Impressions 09/12/2024 2:03 PM CDT The uterus is anteverted and normal in size. The endometrial stripe is not visualized. There are two fibroids, measurements above. Normal ovaries. There was no evidence of free fluid in the pelvis. Narrative Procedure Note Paty Tapia MD - 09/12/2024 IMPRESSION: The uterus is anteverted and normal in size. The endometrial stripe is notvisualized. There are two fibroids, measurements above. Normal ovaries.There was no evidence of free fluid in the pelvis. us Camden Galvan MD IMG US PROCEDURES Final Res ult * TYPE AND SCREEN 14 DAY (09/12/2024 11:24 AM CDT) ABO Rh A Positive Wood, indirect Negative [facility]I PERSAUD Blood 09/12/2024 11:2 4 AM CDT 09/12/2024 1:06 PM CDT Narrative [facility] DUDLEY - 09/12/2024 1:53 PM CDT Has the patient had Daratumumab or Isatuximab in the past 6 months?->No Is this test being ordered in advance for a procedure?->Yes Expected date of procedure:->09/07/24 Has the patient been transfused in the past 3 months?->No Has the patient been in the past 3 months?->No us Camden Galvan MD LAB BLOOD BANK TEST ORDERAB LES Final Result Performing Organization Address [facility] Co de Phone Number SRINI [facility] [place] [address] * eGFR (09/12/2024 11:24 AM CDT) eGFR 62 >=60 mL/min/1. 73 m2 Comment: Interpretive Data Reference Interval Normal >/= 90 mL/min/1.73m2 Mildly decreased* 60 - 89 mL/min/1.73m2 Mildly to moderately decreased 45 - 59 mL/min/1.73m2 Moderately to severely decreased 30 - 44 mL/min/1.73m2 Severely decreased 15 - 29 mL/min/1.73m2 Kidney Failure < 15 mL/min/1.73m2 *Relative to young adult level Estimated glomerular filtration rate is determined by the 2020 CKD-EPI equation recommended by the National Kidney Foundation (A Unifying Approach to GFR Estimation: Recommendations of the NKF-ASK Task Force on Reassessing the Inclusion of Race in Diagnosing Kidney Disease, JASN 2020). The CKD-EPI equation should not be used for patients with unstable renal function and has not been validated in children and those over 70. Current interpretive data was last reviewed 2020. Blood 09/12/2024 11:2 4 AM CDT 09/12/2024 12:31 PM CDT us Mery Del Cid NP LAB BLOOD ORDERABLES Final Result Performing Organization Address City/[facility]/ZIP Co de Phone Number [facility] [place] [address] * Urine culture Urine, clean voided (09/12/2024 11:24 AM CDT) Report Final Report: Less than 100,000 colonies/mL (clinically insignificant growth based on current clinical standards) Organism (CLINICALLY INSIGNIFICANT GROWTH [facility] Urine, clean voided 09/12/2024 11:24 AM CDT 09/12/2024 12:37 PM CDT Narrative [facility] - 09/13/2024 2:04 PM CDT Testing performed by [facility] Laboratory ([phone]) us Brenna Berkowitz INTERVENTIONAL CARDIOLOGIST LAB MICROBIOLOGY - GENERAL ORD ERABLES Final Result [facility] Department [place] [address] * Basic metabolic panel (09/12/2024 11:24 AM CDT) [facility] Sodium 144 135 - 145 mmol/L Potassium, pl 4.3 3.3 - 4.9 mmol/L [facility] Chloride 105 97 - 110 mmol/L [facility] CO2 31 22 - 32 mmol/L [facility] Anion gap 8 2 - 15 mmol/L [facility] BUN 20 6 - 25 mg/dL [facility] Creatinine 0.96 0.60 - 1.10 mg/dL [facility] Glucose 94 70 - 199 mg/dL [facility] Comment: Interpretive Data Fasting glucose >/= 126 mg/dl is diagnostic for diabetes. Fasting is defined as no caloric intake for at least 8 hours. Fasting glucose between 100 mg/dl to 125 mg/dl is diagnostic of prediabetes. In a patient with classic symptoms of hyperglycemia or hyperglycemic crisis, a random glucose >/= 200 mg/dl is diagnostic for diabetes. In the absence of unequivocal hyperglycemia, results should be confirmed by repeat testing. The classification and Diagnosis of Diabetes Diabetes Care 2021; 46: S19-S40. Current interpretive data was last revised 2022. Calcium 9.4 8.5 - 10.3 mg/dL [facility] Blood 09/12/2024 11:2 4 AM CDT 09/12/2024 12:31 PM CDT us Mery Del Cid INTERVENTIONAL CARDIOLOGIST LAB BLOOD ORDERABLES Final Result [facility] Department [place] [address] * Urodynamics (08/16/2024 2:45 PM CDT) us Camden Galvan MD PROCEDURE ORDERABLES Franco ajay Result - Final * POCT urinalysis dipstick (08/16/2024 2:41 PM CDT) Color, Urine, POC Yellow Clarity, ur, POC Clear Clear Glucose, ur, POC Negative Negative Bilirubin, ur, POC Negative Negative Ketones, ur, POC Negative Negative Specific [place], POC 1.005 1.003 - 1.030 Blood, ur, POC Negative Negative pH, ur, POC 7.0 5.0 - 8.0 Protein, ur, POC Negative Negative Urobilinogen, urine, POC 0.2 0.2 - 1.0 mg/dL Nitrite, ur, POC Negative Negative Leukocytes, ur, POC Negative Negative Lot Number [id number] Urine 08/16/2024 2:41 PM CDT us Camden Galvan MD POINT OF CARE TEST ORDERABL ES Final Result from Last 3 Months Insurance [employer]NA MEDICARE AETNA MEDICARE Care Teams Ground Crewman Aircraft Support Relationship Specialty Start Date End Date Esteban Rondon DO PCP - General Internal Medicine 08/19/22
--- OUTSIDE RECORDS SUMMARY | 2024-09-15 13:36 | XMS_ITS | Clinical Summary ---
Author Organization [facility] Address [address] [place] [address] Care Team Providers Care Fleet Administrator Name Role Phone Esteban Rondon DO Primary Care Provider +1- [phone] Allergies Active Allergy Reactions Criticality Noted Date [...] 1 tablet (75 mcg total) by mouth retail analytics manager before breakfast 06/17/19 24 Active vit C/E/Zn/coppr/mery [...] weeks. 30 g 03/08/19 25 025 Discontin ued(Thera py completed ) Hospital, Clinic, or Other [...] Department Care Team Description 09/15/2024 Results Follow-Up [facility] Obstetrics and Gynecology [address] [place] [address] Outpatient [facility] 7th Floor [address] [place] [address] Camden Galvan MD US Pelvis Complete 09/12/2024 1:18 PM CDT - 09/12/2024 11:59 PM CDT Hospital Encounter [facility] Outpatient Health - Ultrasound [address] [facility], 7th Floor, [address] [facility] [place] [address] Uterovaginal prolapse Discharge Disposition: Discharge to home or self care 09/12/2024 10:30 AM CDT Pre-Admission Testing [facility] Center for Preoperative Assessment and Planning [facility]) [address] [place] [phone] Preoperative testing (Primary Dx); Urge incontinence of urine; Uterovaginal prolapse 09/12/2024 9:40 AM CDT Office Visit [facility] Obstetrics and Gynecology [address] [place] [address] Floor [address] [place] [phone] Camden Galvan MD Uterovaginal prolapse (Primary Dx); Urge incontinence of urine; Urinary stress incontinence, male; Urethral sphincter deficiency, intrinsic (ISD) 09/12/2024 Telephone [facility] Obstetrics and Gynecology [address] [place] [address] Floor [address] [place] [phone] Yvonne Wells RN CBC w/diff 09/07/2024 Telephone [facility] Obstetrics and Gynecology [address] [place] [address] Floor [address] [place] [phone] Jina Brown 09/05/2024 Orders Only [facility] Obstetrics and Gynecology [address] [facility] [address] [place] [phone] Saida Hardwick RN Uterovaginal prolapse (Primary Dx) 08/16/2024 2:00 PM CDT Office Visit [facility] Obstetrics and Gynecology [address] [place] [address] [address] [place] [phone] Urge incontinence of urine (Primary Dx) 08/05/2024 Telephone [facility] Obstetrics and Gynecology [address] [place] [address] [address] [place] [phone] Yvonne Wells RN UACX result 08/02/2024 Orders Only [facility] Ob[facility]etrics and Gynecology [address] [place] [address] [address] [place] [phone] Yvonne Wells RN Urge incontinence of urine (Primary Dx) 07/08/2024 11:00 AM CDT Office Visit [facility] Obstetrics and Gynecology [address] [place] [address] [address] [place] [phone] Camden Galvan MD Uterovaginal prolapse (Primary Dx); Urge incontinence of urine 06/30/2024 11:00 AM CDT Procedure visit [facility] Obstetrics and Gynecology [address] [place] [address] Health 7th Floor [address] [place] [address] Pessary maintenance (Primary Dx) from Last 3 Months Surgical History Surgery Date Site/Laterality Comments CATARACT EXTRACTION EXTRACAP SULAR W/ INTRAOCULAR LENS IMPLANTATION 02/23/2018 - 02/22/2019 CATARACT EXTRACTION EXTRACAP SULAR W/ INTRAOCULAR LENS IMPLANTATION 02/23/2022 - 02/22/2023 TUBAL LIGATION 1976 ANKLE FRACTURE SURGERY Right 2005 Medical History Medical History Date Comments Hypothyroidism Family History Medical History Relation Name Comments Hearing loss Father Dorian Heart disease Father Dorian Hypertension Father Mondamin Breast cancer Maternal Grandmother Jennifer Diabetes Maternal Grandmother Jennifer Relation Name Status Comments Father Mondamin Maternal Grandmother Jennifer Social History Tobacco Use [...] CDT 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 Sexual Orientation Not on file Obstetrics History Para Term AB IAB SAB Ectopic Multiple Livin g Live Births 1 1 1 1 2 2 Date Outcome GA Total Labor Labor/2nd/3rd Weight Sex Type Anes PTL Sanjuanita A1 A5 Name Clin 1974 Term Vaginal Living 1976 Term Vag-Spo nt Living Last Filed Vital [...] Description 10/11/2024 7:30 AM CDT Hospital Encounter [facility] Operating Room 1 [place] [phone] Camden Galvan MD [address] [place] [address] 10/11/2024 7:30 AM CDT Anesthesia Event [facility] Operating Room [address] [place] [phone] Mery Del Cid, GAS MANAGER [address] [facility] [phone] [place] [address] 10/11/2024 7:30 AM CDT - 10/11/2024 11:35 AM CDT Surgery [facility] Operating Room [address] [place] [phone] Camden Galvan MD [address] [place] [address] LAPAROSCOPIC UTEROSACRAL COLPOSUSPENSION Scheduled Procedures Name Priority Associated Diagnoses Date/Ti nj LAPAROSCOPIC UTEROSACRAL COLPOSUSPENSION Uterovaginal prolapse Urge incontinence [...] incontinence of urine 10/11/2024 7:30 AM CDT Health Maintenance Due Date Last Done Comments Colon Cancer Screening-Colonoscopy 1948 Depression Screening 1950 Hepatitis C Screening 1950 Osteoporosis Screening-Bone Density Scan 1948 Hepatitis B Screening 1966 Pneumococcal vaccine 65+ (1 of 1 - PCV) 1998 Well Visit 65+ 2013 Covid-19 Vaccine (2023-2 5 season) 2023 08/13/2022, 11/15/2021, 06/07/2021, Additional history exists Influenza Vaccine (#1) 2024 , 11/13/2020, 11/25/2019, Additional history exists Fall Risk Assessment 09/12/2025 09/12/2024 DTaP/Tdap/Td Vaccine (2 - Td or Tdap) 03/01/2031 03/01/2021 Zoster Vaccine Completed 03/16/2020, 11/25/2019 Procedures Procedure Name Priority Date/Time Associated Diagnosis [...] evidence of free fluid in the pelvis. Camden Galvan MD IMG US PROCEDURES Final Res ult * TYPE AND SCREEN 14 DAY (09/12/2024 11:24 AM CDT) Pathologist [facility] ABO Rh A Positive Wood, indirect Negative [facility] DUDLEY Blood 09/12/2024 11:2 4 AM CDT 09/12/2024 1:06 PM CDT Narrative [facility] - 09/12/2024 1:53 PM CDT Has the patient had Daratumumab or Isatuximab in the past 6 months?->No Is this test being ordered in advance for a procedure?->Yes Expected date of procedure:->09/07/24 Has the patient been transfused in the past 3 months?->No Has the patient been in the past 3 months?->No Camden Galvan MD LAB BLOOD BANK TEST ORDERAB LES Final Result [facility] [place] [address] * eGFR (09/12/2024 11:24 AM CDT) eGFR [...] 12:31 PM CDT us Mery Del Cid GAS MANAGER LAB BLOOD ORDERABLES Final Result [facility] [place] [address] * Urine culture Urine, clean voided (09/12/2024 11:24 AM CDT) Report Final Report: Less than 100,000 colonies/mL (clinically insignificant growth based on current clinical standards) Organism (CLINICALLY INSIGNIFICANT GROWTH [facility] Urine, clean voided 09/12/2024 11:24 AM CDT 09/12/2024 12:37 PM CDT Narrative [facility] - 09/13/2024 2:04 PM CDT Testing performed by [facility] Microbiology Laboratory ([phone]) us Brenna Berkowitz GAS MANAGER LAB MICROBIOLOGY - GENERAL ORD ERABLES Final Result [facility] Department [place] [address] * Basic metabolic panel (09/12/2024 11:24 AM CDT) [facility] Sodium 144 135 - 145 mmol/L Potassium, pl 4.3 3.3 - 4.9 mmol/L [facility] Chloride 105 97 - 110 mmol/L [facility] CO2 31 22 - 32 mmol/L [facility] Anion gap 8 2 - 15 mmol/L [facility] BUN 20 6 - 25 mg/dL [facility] Creatinine 0.96 0.60 - 1.10 mg/dL [facility] Glucose 94 70 - 199 mg/dL [facility] Comment: Interpretive Data Fasting glucose >/= 126 [...] 2022. Calcium 9.4 8.5 - 10.3 mg/dL [facility] Blood 09/12/2024 11:2 4 AM CDT 09/12/2024 12:31 PM CDT us Meyr Del Cid NP LAB BLOOD ORDERABLES Final Result [facility] [place] [address] * Urodynamics (08/16/2024 2:45 PM CDT) us Camden Galvan MD PROCEDURE ORDERABLES Franco ajay Result - Final * POCT urinalysis dipstick (08/16/2024 2:41 PM CDT) Color, Urine, POC Yellow Clarity, ur, POC Clear Clear Glucose, ur, POC Negative Negative Bilirubin, ur, POC Negative Negative Ketones, ur, POC Negative Negative Specific [place], POC 1.005 1.003 - 1.030 Blood, ur, POC Negative Negative pH, ur, POC 7.0 5.0 - 8.0 Protein, ur, POC Negative Negative Urobilinogen, urine, POC 0.2 0.2 - 1.0 mg/dL Nitrite, ur, POC Negative Negative Leukocytes, ur, POC Negative Negative Lot Number [id number] Urine 08/16/2024 2:41 PM CDT Camden Galvan MD POINT OF CARE TEST ORDERABL ES Final Result from Last 3 Months Insurance AETNA MEDICARE [id number] MEDICARE Care Teams Fleet Administrator Relationship Specialty Start Date End Date Esteban Rondon DO PCP - General Internal Medicine 08/19/22
[2024-09-15 18:47] LABS: Hematocrit 34.6 % (37.0-47.0); Hemoglobin 11.0 g/dL (12.0-15.0); Immature Granulocyte Percent A 0.2 % (0-0.5); Lymphocytes Absolute Auto 2.39 K/mm3 (0.9-3.2); Mean Corpuscular HGB Conc 31.8 g/dl (32-36); Mean Corpuscular Hemoglobin 28.5 pg (26-34); Mean Corpuscular Volume 89.6 fl (80-100); Nucleated Red Blood Cells Absolute Auto 0.000 K/mm3 (0.0-0.012); Nucleated Red Blood Cells Perc 0.0 % (0.0-0.2); Platelet Count Result 242 k/mm3 (150-375); Red Blood Count 3.86 M/mm3 (4.2-5.4); White Blood Count 8.0 K/mm3 (4.5-10.0)
== END 2024-09-15 13:26 | disposition home or self-care (01) ==
LOC: ANHGOSHLAB 13:26
PROVIDERS: PCP Nurse Practitioner
DX: N81.4 Uterovaginal prolapse, unspecified (principal); Z01.818 Encounter for other preprocedural examination
CPT/HCPCS: 36415; 85025

== ENCOUNTER 2024-12-19 08:34 | Outpatient (CLI) | payer MEDICARE, SELFPAY ==
[2024-12-19 13:19] LABS: Hematocrit 38.6 % (37.0-47.0); Hemoglobin 12.2 g/dL (12.0-15.0); Immature Granulocyte Percent A 0.1 % (0-0.5); Lymphocytes Absolute Auto 2.28 K/mm3 (0.9-3.2); Mean Corpuscular HGB Conc 31.6 g/dl (32-36); Mean Corpuscular Hemoglobin 29.1 pg (26-34); Mean Corpuscular Volume 92.1 fl (80-100); Nucleated Red Blood Cells Absolute Auto 0.000 K/mm3 (0.0-0.012); Nucleated Red Blood Cells Perc 0.0 % (0.0-0.2); Platelet Count Result 291 k/mm3 (150-375); Red Blood Count 4.19 M/mm3 (4.2-5.4); White Blood Count 6.8 K/mm3 (4.5-10.0)
[2024-12-19 13:54] LABS: Thyroid Stimulating Hormone 3.170 uIU/mL (0.465-4.680)
[2024-12-19 13:58] LABS: Ferritin 85.90 ng/mL (11.1-264)
[2024-12-19 14:29] LABS: Vitamin B12 381.0 pg/mL (239-931)
== END 2024-12-19 08:35 | disposition home or self-care (01) ==
PROVIDERS: PCP Nurse Practitioner; Visit Provider Nurse Practitioner
DX: E03.9 Hypothyroidism, unspecified (principal); D64.9 Anemia, unspecified
CPT/HCPCS: 36415; 82607; 82728; 82746; 84443; 85025